=== PATIENT | female | born 1990 | race Caucasian/White ===

== ENCOUNTER 2016-12-16 16:33 | Emergency (ER) | payer OTHER ==
[~2016-12-16] VITALS: Ht 175.3 cm; Wt 65.6 kg
[~2016-12-16 16:33] MED LIST: COLACE100 MG PO; IBUPROFEN800 MG PO; KLONOPIN1 MG PO; MACROBID100 MG PO; NAPROSYN500 MG PO; NOHOMEMEDS; ONDANSETRON ODT4 MG PO; PHENADOZ12.5 MG PR; PRENATABS FA T1 EACH PO; PRENATABS RX T1 EACH PO; PROMETHAZINE HC25 M1 PO; REGLAN10 MG PO; TYLENOL EXTRA500 MG PO; Tums,OsCal PO; ZOFRAN ODT8 MG PO; ZOFRAN4 MG PO
[2016-12-16] MEDS ORDERED: NORCO 5/3251 TABLET PO (20:00)
[2016-12-16] MEDS ORDERED: CLEOCIN300 MG PO (20:00)
[2016-12-16 20:25] VITALS: BP 120/88
== END 2016-12-16 20:27 | disposition home or self-care (01) ==
LOC: EME 16:33
DX: K04.7 Periapical abscess without sinus (principal); F17.200 Nicotine dependence, unspecified, uncomplicated
CPT/HCPCS: 99281; 99285; J1100; J2270; J7030

== ENCOUNTER 2016-12-18 12:07 | Emergency (ER) | payer OTHER ==
[~2016-12-18] VITALS: Ht 175.3 cm; Wt 65.4 kg
[~2016-12-18 12:07] MED LIST changes: +CLEOCIN300 MG PO; +NORCO 5/3251 TABLET PO
[2016-12-18 14:17] LABS: HEMATOCRIT 41.8 % (36.0-46.0); MCH 30.1 PG (29.0-34.0); MCHC 33.7 G/DL (30.0-36.0); MCV 89.1 FL (83-99); PLATELET COUNT 343 K/uL (156-360); RBC DIS.WIDTH-CV 12.1 % (11.8-14.6); RBC DIS.WIDTH-SD 38.9 % (39-53); RED BLOOD COUNT 4.69 M/uL (3.80-5.20); WHITE BLOOD COUNT 11.6 K/uL (4.1-10.2)
[2016-12-18 14:30] LABS: CHLORIDE 105 mEq/L (99-109); GLUCOSE 93 mg/dL (70-99); POTASSIUM 3.9 mEq/L (3.7-5.4); SODIUM 141 mEq/L (136-147)
[2016-12-18 14:32] LABS: ANION GAP 12 MEQ/L (2-14)
[2016-12-18 14:34] LABS: GFR ESTIMATE (CALCULATED) > 59 mL/min/
[2016-12-18 14:35] LABS: UREA NITROGEN (BUN) 15 mg/dL (9-23)
[2016-12-18] MEDS ORDERED: MOTRIN800 MG PO (14:52)
[2016-12-18] MEDS ORDERED: CLEOCIN300 MG PO (15:10)
[2016-12-18] MEDS ORDERED: NORCO 5/3251 TABLET PO (15:10)
[2016-12-18] MEDS ORDERED: PREDNISONE20 MG PO (15:10)
[2016-12-18 15:29] VITALS: BP 136/83
== END 2016-12-18 15:30 | disposition home or self-care (01) ==
LOC: EME 12:07
PROVIDERS: Nurse Practitioner Family
DX: L03.211 Cellulitis of face (principal); K02.9 Dental caries, unspecified; F17.200 Nicotine dependence, unspecified, uncomplicated; G89.29 Other chronic pain
CPT/HCPCS: 70486; 80048; 85027; 99281; 99284

== ENCOUNTER 2016-12-21 10:29 | Emergency (ER) | payer OTHER ==
[~2016-12-21] VITALS: Ht 175.3 cm; Wt 63.4 kg
[~2016-12-21 10:29] MED LIST changes: +MOTRIN800 MG PO; +PREDNISONE20 MG PO
[2016-12-21 10:50] LABS: HEMATOCRIT 43.1 % (36.0-46.0); MCH 29.7 PG (29.0-34.0); MCHC 33.2 G/DL (30.0-36.0); MCV 89.6 FL (83-99); MEAN PLAT.VOLUME 9.5 uM^3 (9.5-12.4); PLATELET COUNT 299 K/uL (156-360); RBC DIS.WIDTH-SD 39.5 % (39-53); RED BLOOD COUNT 4.81 M/uL (3.80-5.20); WHITE BLOOD COUNT 10.4 K/uL (4.1-10.2)
[2016-12-21 11:24] LABS: QUANTITATIVE HCG < 4.0 MIU/ML
[2016-12-21 11:32] LABS: CHLORIDE 108 mEq/L (99-109); POTASSIUM 3.4 mEq/L (3.7-5.4); SODIUM 142 mEq/L (136-147)
[2016-12-21 11:36] LABS: ANION GAP 16 MEQ/L (2-14)
[2016-12-21 11:37] LABS: TOTAL BILIRUBIN 0.5 mg/dL (0.0-1.0)
[2016-12-21 11:38] LABS: ALKALINE PHOSPHATASE 61 IU/L (3-129); GFR ESTIMATE (CALCULATED) > 59 mL/min/; GLUCOSE 140 mg/dL (70-99)
[2016-12-21 11:39] LABS: UREA NITROGEN (BUN) 18 mg/dL (9-23)
[2016-12-21 14:49] LABS: ADD MIUA? NO; BILIRUBIN NEGATIVE; BLOOD NEGATIVE; COLOR YELLOW ((YELLOW)); GLUCOSE (STRIP) NEGATIVE; KETONES 20; LEUKOCYTES NEGATIVE; NITRITE NEGATIVE; PROTEIN (STRIP) 30; SPECIFIC GRAVITY 1.015 (1.000-1.030); UCUL ADDED? NO; UROBILINOGEN 0.2 MG/DL (0.2-1.0)
[2016-12-21] MEDS ORDERED: ZOFRAN ODT4 MG PO (16:05)
[2016-12-21] MEDS ORDERED: PHENERGAN25 MG PR (16:05)
[2016-12-21 16:23] VITALS: BP 134/77
== END 2016-12-21 16:23 | disposition home or self-care (01) ==
LOC: EXP 10:29 → EME 10:29 → EXP 16:23
DX: R11.2 Nausea with vomiting, unspecified (principal); T36.8X5A Adverse effect of other systemic antibiotics, initial encounter; K31.84 Gastroparesis; K03.81 Cracked tooth; K02.9 Dental caries, unspecified; F17.200 Nicotine dependence, unspecified, uncomplicated
CPT/HCPCS: 80053; 81003; 84702; 85027; 99281; 99283; J2405; J2765; J7030